=== PATIENT | male | born 1950 | race Caucasian/White ===

== ENCOUNTER 2018-01-28 01:22 | Observation (INO) | payer OTHER ==
[2018-01-28] MEDS ORDERED: NS 1,000 ML IV ONE (01:25)
--- NOTE | 2018-01-28 01:28 | EDPHY ---
H & P Time Seen by Provider: 01/28/18 01:26 HPI/ROS: HPI CHIEF COMPLAINT: Blood red blood per rectum HISTORY OF PRESENT ILLNESS: Patient is a 67-year-old male, presents emergency room bright red blood per rectum. Patient reports to me this started approximately an hour ago. He felt like he had to have diarrhea and then had bright red blood. No history of GI bleed. He is not on any anticoagulation however he did take some aspirin yesterday for headache. Denies any abdominal pain chest pain or shortness of breath. Denies lightheadedness or global weakness. Denies fever. Past Medical History: Diverticulosis. Past Surgical History: Denies any recent surgery Social History: Denies daily use drugs alcohol tobacco. Family History: Noncontributory ROS REVIEW OF SYSTEMS: A comprehensive 10 point review of systems is otherwise negative aside from elements mentioned in the history of present illness. Exam Constitutional appears nontoxic no acute distress, triage nursing summary reviewed, vital signs reviewed, awake/alert. Eyes normal conjunctivae and sclera, EOMI, PERRLA. HENT normal inspection, atraumatic, moist mucus membranes, no epistaxis, neck supple/ no meningismus, no raccoon eyes. Respiratory clear to auscultation bilaterally, normal breath sounds, no respiratory distress, no wheezing. Cardiovascular rate normal, regular rhythm, no murmur, no edema, distal pulses normal. Gastrointestinal soft, non-tender, no rebound, no guarding, normal bowel sounds, no distension, no pulsatile mass. Genitourinary no CVA tenderness. Musculoskeletal no midline vertebral tenderness, full range of motion, no calf swelling, no tenderness of extremities, no meningismus, good pulses, neurovascularly intact. Skin pink, warm, & dry, no rash, skin atraumatic. Neurologic awake, alert and oriented x 3, AAOx3, moves all 4 extremities equally, motor intact, sensory intact, CN II-XII intact, normal cerebellar, normal vision, normal speech. Psychiatric normal mood/affect. Heme/Lymph/Immune no lymphadenopathy. Differential Diagnosis: Includes but is not limited to in a particular order acute GI bleed, blood loss anemia, hemorrhoidal bleed, diverticular bleed, upper GI bleed Medical Decision Making: Plan for this patient IV establishment blood draw, type and screen, 2 large-bore IVs, rectal exam, re-evaluate. Check H&H. Re-evaluation: 0144: Patient had a bowel movement here in the emergency room with significant amount of bright red blood. Per rectum. Minimal stool. No black tarry stool. EKG interpretation by me on record in [employer] system. Impression time of EKG 1:47 a.m., sinus bradycardia rate of 43. No signs of acute ischemia. No ST elevation no ST depression. 0218: Patient remains hemodynamically stable in no acute distress. Blood work has been reviewed H&H are reviewed. Patient has 2 large-bore IVs. He has been typed and screen. Bright red blood per rectum. Protonix as been ordered. I will consult the hospitalist service Dr. Ryan for admission. Additionally will consult GI for further care of this patient. Spoke with Dr. Renae will plan on seeing the patient. Agrees to current treatment plan. Source: Patient, EMS Constitutional: Initial Vital Signs Temperature (C) 36.5 C 01/28/18 01:15 Heart Rate 45 L 01/28/18 01:15 Respiratory Rate 18 01/28/18 01:15 Blood Pressure 147/78 H 01/28/18 01:15 O2 Sat (%) 98 01/28/18 01:15 O2 Delivery Mode Room Air Medical Decision Making - Data Points Laboratory Results: Laboratory Results 01/28/18 01:25 01/28/18 01:25 01/28/18 01/28/18 01/28/18 01:48 01:45 01:34 WBC RBC Hgb POC Hgb 13.3 gm/dL L gm/dL (13.7-17.5) Hct POC Hct 39 % L % (40-51) MCV MCH MCHC RDW Plt Count MPV Neut % (Auto) Lymph % (Auto) [place] % (Auto) Eos % (Auto) Baso % (Auto) Nucleat RBC Rel Count Absolute Neuts (auto) Absolute Lymphs (auto) Absolute Monos (auto) Absolute Eos (auto) Absolute Basos (auto) Absolute Nucleated RBC Immature Gran % Immature Gran # PT INR APTT VBG Lactic Acid 0.9 mmol/L mmol/L (0.7-2.1) POC Sodium 142 mEq/L mEq/L (135-145) Sodium POC Potassium 3.6 mEq/L mEq/L (3.3-5.0) Potassium POC Chloride 104 mEq/L mEq/L (97-110) Chloride Carbon Dioxide Anion Gap POC BUN 23 mg/dL mg/dL (7-23) BUN Creatinine POC Creatinine 1.2 mg/dL mg/dL (0.7-1.3) Estimated GFR Glucose POC Glucose 139 mg/dL H mg/dL (70-100) Calcium Total Bilirubin Conjugated Bilirubin Unconjugated Bilirubin AST ALT Alkaline Phosphatase Total Protein Albumin Lipase Patient ABO/Rh Pending Antibody Screen Pending 01/28/18 01/28/18 01/28/18 01:25 01:25 01:25 WBC 7.74 10^3/uL 10^3/uL (3.80-9.50) RBC 4.18 10^6/uL L 10^6/uL (4.40-6.38) Hgb 12.9 g/dL L g/dL (13.7-17.5) POC Hgb Hct 38.4 % L % (40.0-51.0) POC Hct MCV 91.9 fL fL (81.5-99.8) MCH 30.9 pg pg (27.9-34.1) MCHC 33.6 g/dL g/dL (32.4-36.7) RDW 13.5 % % (11.5-15.2) Plt Count 276 10^3/uL 10^3/uL (150-400) MPV 11.1 fL fL (8.7-11.7) Neut % (Auto) 47.8 % % (39.3-74.2) Lymph % (Auto) 39.8 % % (15.0-45.0) [place] % (Auto) 8.7 % % (4.5-13.0) Eos % (Auto) 2.7 % % (0.6-7.6) Baso % (Auto) 0.9 % % (0.3-1.7) Nucleat RBC Rel Count 0.0 % % (0.0-0.2) Absolute Neuts (auto) 3.70 10^3/uL 10^3/uL (1.70-6.50) Absolute Lymphs (auto) 3.08 10^3/uL H 10^3/uL (1.00-3.00) Absolute Monos (auto) 0.67 10^3/uL 10^3/uL (0.30-0.80) Absolute Eos (auto) 0.21 10^3/uL 10^3/uL (0.03-0.40) Absolute Basos (auto) 0.07 10^3/uL 10^3/uL (0.02-0.10) Absolute Nucleated RBC 0.00 10^3/uL 10^3/uL (0-0.01) Immature Gran % 0.1 % % (0.0-1.1) Immature Gran # 0.01 10^3/uL 10^3/uL (0.00-0.10) PT 13.5 SEC SEC (12.0-15.0) INR 1.01 (0.83-1.16) APTT 22.9 SEC L SEC (23.0-38.0) VBG Lactic Acid POC Sodium Sodium 144 mEq/L mEq/L (135-145) POC Potassium Potassium 4.0 mEq/L mEq/L (3.5-5.2) POC Chloride Chloride 106 mEq/L mEq/L (97-110) Carbon Dioxide 27 mEq/l mEq/l (22-31) Anion Gap 11 mEq/L mEq/L (8-16) POC BUN BUN 23 mg/dL mg/dL (7-23) Creatinine 1.1 mg/dL mg/dL (0.7-1.3) POC Creatinine Estimated GFR > 60 Glucose 126 mg/dL H mg/dL (70-100) POC Glucose Calcium 9.2 mg/dL mg/dL (8.5-10.4) Total Bilirubin 0.4 mg/dL mg/dL (0.1-1.4) Conjugated Bilirubin 0.3 mg/dL mg/dL (0.0-0.5) Unconjugated Bilirubin 0.1 mg/dL mg/dL (0.0-1.1) AST 22 IU/L IU/L (17-59) ALT 23 IU/L IU/L (21-72) Alkaline Phosphatase 62 IU/L IU/L (38-126) Total Protein 6.2 g/dL L g/dL (6.3-8.2) Albumin 4.0 g/dL g/dL (3.5-5.0) Lipase 69 IU/L IU/L (23-300) Patient ABO/Rh Antibody Screen Medications Given: Discontinued Medications Sodium Chloride (Ns) 1,000 mls @ 0 mls/hr IV EDNOW ONE; Wide Open PRN Reason: Protocol Stop: 01/28/18 01:26 Last Admin: 01/28/18 02:18 Dose: 1,000 mls Pantoprazole Sodium (Protonix) 40 mg IVP EDNOW ONE Stop: 01/28/18 01:56 Last Admin: 01/28/18 02:18 Dose: 40 mg Point of Care Test Results: 01/28/18 01:34 POC Sodium 142 POC Potassium 3.6 POC Chloride 104 POC BUN 23 POC Creatinine 1.2 POC Glucose 139 H Departure - Departure Disposition: [facility] Inpatient Acute Clinical Impression: Bradycardia GIB (gastrointestinal bleeding) Qualifiers: GI bleed type/associated pathology: unspecified gastrointestinal hemorrhage type Qualified Code(s): K92.2 - Gastrointestinal hemorrhage, unspecified Condition: Fair
[2018-01-28 01:44] LABS: PLATELET COUNT 276 10^3/uL (150-400)
--- NOTE | 2018-01-28 01:49 | CPEKG ---
Heart Rate: 43 RR Interval: 1395 P-R Interval: 180 QRSD Interval: 102 QT Interval: 492 QTC Interval: 417 P [place]: 55 QRS [place]: 47 T Wave [place]: 51 EKG Severity - OTHERWISE NORMAL ECG - EKG Impression: SINUS BRADYCARDIA Electronically Signed By: Maximiliano Bangura 28-Jan-2018 06:28:24
[2018-01-28 01:52] LABS: INR 1.01 (0.83-1.16); PROTIME(PATIENT) 13.5 SEC (12.0-15.0)
[2018-01-28] MEDS ORDERED: PANTOPRAZOLE SODIUM 40 MG VIAL IVP ONE (01:55)
[2018-01-28] MEDS ORDERED: ONDANSETRON 4 MG/2 ML VIAL IVP PRN ×2 (03:01→14:29)
[2018-01-28] MEDS ORDERED: PEG 3350/NA SULF,BICARB,CL/KCL (GAVILYTE-G) 4000 ML BTL PO ONE (03:03)
[2018-01-28] MEDS ORDERED: NS 1,000 ML IV SCH (03:15)
--- NOTE | 2018-01-28 04:42 | PDGENHP ---
History and Physical - Chief Complaint Rectal bleeding - History of Present Illness Source-patient provides history appears reliable. EMR reviewed and case discussed with ED provider. HPI - pleasant 67-year-old gentleman with past medical history significant for BPH, diverticulosis, GERD who presents emergency department today with complaints of rectal bleeding. Patient's symptoms started approximately 1 hr prior to his arrival to the emergency department. Patient states that he was getting ready for bed and had send urgency to go to the bathroom. He noted dark red stool in the toilet. Patient subsequently had 6 additional episodes with progression of the bleeding to bright red blood. Patient denies any abdominal pain a little bit of distension. Patient denies any nausea or vomiting. Patient does state that during these episodes he did develop a little diaphoresis but denies any chest pain or shortness of air however he does state that he felt like he was breathing more heavily. Additionally patient is not sure if he had a presyncopal or syncopal episode. He denies any falls or head injury but he does state that he had gone up and down the stairs a few times on when he began to developed some diaphoresis and lightheadedness. Patient also notes that he took a dose of aspirin for some aches and pains yesterday. He does not take this on a regular basis on rather he utilizes more of Tylenol. Patient does have a history of diverticulosis on a colonoscopy approximately 6 or 7 years ago. He denies any other abnormalities on his previous colonoscopy, no polyps. History Information - Allergies/Home Medication List Allergies/Adverse Reactions: acetaminophen [From Vicodin] Allergy (Mild, Verified 01/28/18 02:54) Other-Enter Comments hydrocodone [From Vicodin] Allergy (Mild, Verified 01/28/18 02:54) Other-Enter Comments I have personally reviewed and updated: family history, medical history, social history, surgical history - Past Medical History Additional medical history: BPH, GERD, diverticulosis, skin cancer - Surgical History Additional surgical history: Colonoscopy 6 or 7 years ago, skin cancer removal localized. - Family History Additional family history: Brother with history of diverticulitis - Social History Smoking Status: Never smoked Alcohol Use: Other (1.5 glasses of wine daily with dinner) Drug Use: None Additional social history: Patient is lives with his . Cor status- full. Review of Systems Review of Systems: ROS: 10pt was reviewed & negative except for what was stated in HPI & below Constitutional: Reports: diaphoresis (See HPI). Denies: chills, fever, weight loss Cardiac: Reports: lightheadedness, syncope. Denies: chest pain, edema, palpitations Respiratory: Reports: shortness of breath. Denies: orthopnea, wheezing Gastrointestinal: Reports: rectal bleeding, abdominal distention. Denies: vomitting, abdominal pain, nausea Genitourinary: Denies: dysuria, hematuria Muscolosketal: Denies: joint pain, muscle pain Skin: Reports: no symptoms Neurological: Reports: anxiety. Denies: headache, weakness Hematologic/Lymphatic: Denies: anemia (No previous history) Physical Exam Physical Exam: Selected Entries 01/28/18 01:15 Blood Pressure Automatic Method Heart Rate 45 L Respiratory 18 Rate O2 Sat (%) 98 Temperature (C) 36.5 C Blood Pressure 147/78 H Mean Arterial 101 H Pressure (MAP) O2 Delivery Room Air Mode Temperature Oral Source Temp Pulse Resp BP Pulse Ox 36.6 C 58 L 18 136/81 H 95 01/28/18 03:10 01/28/18 03:10 01/28/18 03:10 01/28/18 03:10 01/28/18 03:10 Constitutional: no apparent distress, appears nourished, not in pain, other ( NAD. Pleasant adult gentleman is lying quietly in bed.) Eyes: PERRL, anicteric sclera, EOMI, No pale conjunctiva, No scleral injection Ears, Nose, Mouth, Throat: moist mucous membranes, no oral mucosal ulcers, other (No nasal discharge), No poor dentition Cardiovascular: no murmur, rub, or gallop, pulses symmetric bilaterally, bradycardia (50s to 60s with regular rhythm) Peripheral Pulses: 2+: dorsalis-pedis (R), dorsalis-pedis (L) Respiratory: no respiratory distress, clear to auscultation, No reduced air movement, No expiratory wheeze, No inspiratory crackles Gastrointestinal: soft, non-tender abdomen, no palpable masses, distension (Mild ), other (Hypoactive bowel sounds.), No tenderness Genitourinary: no bladder tenderness, No reilly in urethra Skin: warm, normal color, no rashes or abrasions, No abrasion Musculoskeletal: full muscle strength, no muscle tenderness, normal joint ROM, other (Patient sits up independently) Neurologic: AAOx3, CN II-XII Intact, other (Grossly nonfocal), No facial droop Psychiatric: not encephalopathic, thought process linear, anxious, other ( Thought process content and questions are appropriate.), No encephalopathic Lab Data & Imaging Review 01/28/18 01:25 01/28/18 01:25 WBC 7.74 10^3/uL (3.80-9.50) 01/28/18 01:25 RBC 4.18 10^6/uL (4.40-6.38) L 01/28/18 01:25 Hgb 12.9 g/dL (13.7-17.5) L 01/28/18 01:25 POC Hgb 13.3 gm/dL (13.7-17.5) L 01/28/18 01:34 Hct 38.4 % (40.0-51.0) L 01/28/18 01:25 POC Hct 39 % (40-51) L 01/28/18 01:34 MCV 91.9 fL (81.5-99.8) 01/28/18 01:25 MCH 30.9 pg (27.9-34.1) 01/28/18 01:25 MCHC 33.6 g/dL (32.4-36.7) 01/28/18 01:25 RDW 13.5 % (11.5-15.2) 01/28/18 01:25 Plt Count 276 10^3/uL (150-400) 01/28/18 01:25 MPV 11.1 fL (8.7-11.7) 01/28/18 01:25 Neut % (Auto) 47.8 % (39.3-74.2) 01/28/18 01:25 Lymph % (Auto) 39.8 % (15.0-45.0) 01/28/18 01:25 [place] % (Auto) 8.7 % (4.5-13.0) 01/28/18 01:25 Eos % (Auto) 2.7 % (0.6-7.6) 01/28/18 01:25 Baso % (Auto) 0.9 % (0.3-1.7) 01/28/18 01:25 Nucleat RBC Rel Count 0.0 % (0.0-0.2) 01/28/18 01:25 Absolute Neuts (auto) 3.70 10^3/uL (1.70-6.50) 01/28/18 01:25 Absolute Lymphs (auto) 3.08 10^3/uL (1.00-3.00) H 01/28/18 01:25 Absolute Monos (auto) 0.67 10^3/uL (0.30-0.80) 01/28/18 01:25 Absolute Eos (auto) 0.21 10^3/uL (0.03-0.40) 01/28/18 01:25 Absolute Basos (auto) 0.07 10^3/uL (0.02-0.10) 01/28/18 01:25 Absolute Nucleated RBC 0.00 10^3/uL (0-0.01) 01/28/18 01:25 Immature Gran % 0.1 % (0.0-1.1) 01/28/18 01:25 Immature Gran # 0.01 10^3/uL (0.00-0.10) 01/28/18 01:25 PT 13.5 SEC (12.0-15.0) 01/28/18 01:25 INR 1.01 (0.83-1.16) 01/28/18 01:25 APTT 22.9 SEC (23.0-38.0) L 01/28/18 01:25 VBG Lactic Acid 0.9 mmol/L (0.7-2.1) 01/28/18 01:48 POC Sodium 142 mEq/L (135-145) 01/28/18 01:34 Sodium 144 mEq/L (135-145) 01/28/18 01:25 POC Potassium 3.6 mEq/L (3.3-5.0) 01/28/18 01:34 Potassium 4.0 mEq/L (3.5-5.2) 01/28/18 01:25 POC Chloride 104 mEq/L (97-110) 01/28/18 01:34 Chloride 106 mEq/L (97-110) 01/28/18 01:25 Carbon Dioxide 27 mEq/l (22-31) 01/28/18 01:25 Anion Gap 11 mEq/L (8-16) 01/28/18 01:25 POC BUN 23 mg/dL (7-23) 01/28/18 01:34 BUN 23 mg/dL (7-23) 01/28/18 01:25 Creatinine 1.1 mg/dL (0.7-1.3) 01/28/18 01:25 POC Creatinine 1.2 mg/dL (0.7-1.3) 01/28/18 01:34 Estimated GFR > 60 01/28/18 01:25 Glucose 126 mg/dL (70-100) H 01/28/18 01:25 POC Glucose 139 mg/dL (70-100) H 01/28/18 01:34 Calcium 9.2 mg/dL (8.5-10.4) 01/28/18 01:25 Total Bilirubin 0.4 mg/dL (0.1-1.4) 01/28/18 01:25 Conjugated Bilirubin 0.3 mg/dL (0.0-0.5) 01/28/18 01:25 Unconjugated Bilirubin 0.1 mg/dL (0.0-1.1) 01/28/18 01:25 AST 22 IU/L (17-59) 01/28/18 01:25 ALT 23 IU/L (21-72) 01/28/18 01:25 Alkaline Phosphatase 62 IU/L (38-126) 01/28/18 01:25 Total Protein 6.2 g/dL (6.3-8.2) L 01/28/18 01:25 Albumin 4.0 g/dL (3.5-5.0) 01/28/18 01:25 Lipase 69 IU/L (23-300) 01/28/18 01:25 Patient ABO/Rh O POSITIVE 01/28/18 01:45 Antibody Screen NEGATIVE 01/28/18 01:45 Visualized and Interpreted EKG results: Yes EKG additional interpertation: Sinus bradycardia in the 40s. No acute ST changes. QTC 417. Assessment & Plan Assessment: Pleasant 67-year-old gentleman with history of diverticulosis presents emergency department with multiple episodes of rectal bleeding bright red blood per rectum. GIB (gastrointestinal bleeding) - lower GI bleeding likely related to the diverticulosis versus AV malformation versus less likely irritable bowel disease or hemorrhoids. Patient with a slightly declined H&H who which we will continue to monitor and trend. Patient has already been typed and screen. GI was consulted from the emergency department and recommends the patient complete a bowel prep in anticipation for colonoscopy later this morning. I did review with the patient importance of completing the full course of GoLYTELY if possible on to ensure adequate prep for colonoscopy. Patient has concerns regarding persistent watery stools the last time he had a colonoscopy and a multiple number of BMs and trips to the bathroom he would need to make. Patient is willing to proceed with the bowel prep and will monitor for clear stools. Acute blood loss anemia - baseline is unknown but given the quantity of blood patient reports this is likely an acute blood loss anemia. Trending H&H. Transfuse if needed. Patient is already typed and screened. Bradycardia (Acute) - patient reports a baseline heart rate of 60s. When he arrived to the emergency department he did have a heart rate in the 40s. Patient endorses at episode of presyncope possible syncope and may have had a vagal response. Patient's heart rate has returned to baseline at this time. Patient will receive IV fluids for supplementation. Will monitor his H&H serially. Patient is not on any beta blockers. Hyperglycemia - these are nonfasting labs. No previous history of diabetes or hyperglycemia. Will continue to monitor no need for insulin at this time. FEN - patient will be NPO except for medications including bowel prep. Electrolytes will be monitored and replaced if needed. PPX-SCDs only. Holding anticoagulation in setting of acute bleeding. Cor status-full Disposition patient has been admitted to observation status on the medical floor at this time pending on findings and recommendations as per GI.
[2018-01-28] MEDS ORDERED: LR 1,000 ML IV ONE (13:18)
--- NOTE | 2018-01-28 14:09 | HOSPPROG ---
Hospitalist Progress Note Assessment/Plan: Meghan 67-year-old gentleman with history of diverticulosis presents emergency department with multiple episodes of rectal bleeding bright red blood per rectum. #GIB (gastrointestinal bleeding) - -lower GI bleeding likely related to the diverticulosis versus AV malformation versus less likely irritable bowel disease or hemorrhoids. -Patient with a slightly declined H&H who which we will continue to monitor and trend. -GI was consulted from the emergency department -bowel prep and colonoscopy today -Patient is willing to proceed with the bowel prep and will monitor for clear stools. #Acute blood loss anemia - -baseline is unknown but given the quantity of blood patient reports this is likely an acute blood loss anemia. -Trending H&H. Transfuse if needed. Patient is already typed and screened. #Bradycardia (Acute) - -patient reports a baseline heart rate of 60s. -stable #Hyperglycemia - -these are nonfasting labs. No previous history of diabetes or hyperglycemia. Will continue to monitor no need for insulin at this time. #FEN - -patient will be NPO except for medications including bowel prep. -Electrolytes will be monitored and replaced if needed. #PPX-SCDs only. Holding anticoagulation in setting of acute bleeding. #Cor status-full Disposition patient has been admitted to observation status on the medical floor at this time pending on findings and recommendations as per GI. Subjective: Anxious about colonoscopy. Objective: Vital Signs Temp Pulse Resp BP Pulse Ox 36.9 C 66 16 160/84 H 95 01/28/18 13:09 01/28/18 13:09 01/28/18 13:09 01/28/18 13:09 01/28/18 13:09 Laboratory Results 01/28/18 08:00 01/27/18 01/28/18 01/29/18 05:59 05:59 05:59 Intake Total 1200 Output Total 1280 750 Balance -80 -750 PT 13.5 SEC (12.0-15.0) 01/28/18 01:25 INR 1.01 (0.83-1.16) 01/28/18 01:25 - Physical Exam Constitutional: no apparent distress, appears nourished Eyes: PERRL, anicteric sclera Ears, Nose, Mouth, Throat: moist mucous membranes, hearing normal Cardiovascular: No JVD, No edema Respiratory: no respiratory distress, no rales or rhonchi Gastrointestinal: No tenderness, No ascites Skin: warm, normal color Musculoskeletal: normal joint ROM, no joint effusions Neurologic: AAOx3 Psychiatric: interacting appropriately, thought process linear, anxious ICD10 Worksheet Patient Problems: Problems Problem Status Onset GIB (gastrointestinal bleeding) Acute Bradycardia Acute
[2018-01-28] MEDS ORDERED: PROPOFOL 200 MG/20 ML VIAL ONE ×2 (14:27→14:42)
--- NOTE | 2018-01-28 14:28 | GCON ---
[f rep st] CONSULTATION REQUESTING PHYSICIAN: Dr. Bangura REASON FOR CONSULTATION: Bloody stool. CHIEF COMPLAINT: Bloody stool. HISTORY OF PRESENTING ILLNESS: Briefly, the patient is a pleasant 67-year-old male with a past medic al history significant for heartburn and diverticulosis, who presented to the emergency room with a c omplaint of rectal bleeding. He reports he was in his usual state of health until recently. He had some mild change in bowel habits including some increased frequency. On the day of admission, he rep orts he had several urgent, loose, and frankly bloody bowel movements. Given the volume of blood, th e urgency of bowel movements, he presented to the emergency room with alarm. He reports no nausea or vomiting. He has had no shortness of breath or cough. He reports no fevers, chills or sweats. He reports no prior history of prior similar symptoms. He denies syncope, although may have felt faint. He reports no fall. He reports no nonsteroidal anti-inflammatory use, although recently had a head ache and used some aspirin. He underwent colonoscopy approximately 6-7 years ago, while in the [facility] system. He reports apart from diverticulosis, this was normal. ALLERGIES: Are to Tylenol and Vicodin. PAST MEDICAL HISTORY: Includes BPH, heartburn, diverticulosis, and skin cancer. FAMILY HISTORY: Positive for brother with diverticulosis and diverticulitis. SOCIAL HISTORY: He drinks alcohol rarely. Does not use drugs or smoke cigarettes. He lives with hi s . OUTPATIENT MEDICATIONS: Reviewed and include only the occasional anti-inflammatory therapy. REVIEW OF SYSTEMS: A complete 14-point review was undertaken with the patient and is negative except for those details described in the History of Present Illness. PHYSICAL EXAM: GENERAL: This is a well-developed male, in no apparent distress. HEENT: His pupils are equal, round, reactive to light and accommodation. Sclerae are nonicteric. His oropharynx is c lear. NECK: Supple without lymphadenopathy. HEART: Regular without murmur. ABDOMEN: Soft, nonte nder, with normoactive bowel sounds. EXTREMITIES: Free of cyanosis, clubbing, and edema. NEURO: G rossly nonfocal. SKIN: Warm and dry. MUSCULOSKELETAL: His joints show no arthritis. NEURO: Stab le mood and affect. LABORATORY TESTING: Shows a white count of 7.7, hemoglobin of 12.9, hematocrit of 38.4, platelet cou nt of 276. INR 1.01. Sodium of 142, potassium of 3.6, chloride of 104, bicarb of 27, BUN of 23, cre atinine of 1.0. AST, ALT, alkaline phosphatase normal. Lipase normal. IMPRESSION AND RECOMMENDATIONS: The patient is admitted to the hospital with multiple bright red blo jeffrey bowel movements. Luckily, his hematocrit and vitals remain stable. In order to resolve the diff erential diagnosis at this time, I recommend lower endoscopy. Pending the results of lower endoscopy , we could consider additional workup. Given his overall stable hematocrit and vital signs, it is po ssible that he could be discharged soon. /[id number]/MODL
[2018-01-28] MEDS ORDERED: NALOXONE HCL 0.4 MG/ML INJ IVP PRN (14:29)
[2018-01-28] MEDS ORDERED: ALBUTEROL 3 ML DEYVIAL IH PRN (14:29)
[2018-01-28] MEDS ORDERED: LR 500 ML IV PRN (14:29)
[2018-01-28] MEDS ORDERED: fentaNYL 100 MCG/2 ML INJ IVP PRN (14:29)
--- NOTE | 2018-01-28 14:29 | PDANEPAE ---
ANE Past Medical History - Pulmonary History Hx Oxygen in Use at Home: No Hx Sleep Apnea: No Sleep Apnea Screening Result - Last Documented: Positive - Endocrine History Hx Diabetes: No - Chronic Pain History Chronic Pain: No ANE Review of Systems Review of Systems: ANE Patient History - Allergies Allergies/Adverse Reactions: acetaminophen [From Vicodin] Allergy (Mild, Verified 01/28/18 02:54) Other-Enter Comments hydrocodone [From Vicodin] Allergy (Mild, Verified 01/28/18 02:54) Other-Enter Comments - Home Medications Home Medications: Finasteride [Proscar 5 MG (*)] 5 mg PO DAILY 01/28/18 [Last Taken Unknown] Ranitidine HCl [Zantac 75] 75 mg PO DAILY PRN 01/28/18 [Last Taken Unknown] Testosterone [Androgel 1% pump] 2 applic TP DAILY 01/28/18 [Last Taken Unknown] - NPO status NPO Since - Liquids (Date): 01/28/18 NPO Since - Liquids (Time): 00:00 NPO Since - Solids (Date): 01/28/18 NPO Since - Solids (Time): 00:00 - Smoking Hx Smoking Status: Never smoked - Alcohol Use Alcohol Use: Other (1.5 glasses of wine daily with dinner) ANE Labs/Vital Signs - Labs Result Diagrams: 01/28/18 08:00 01/28/18 01:25 - Vital Signs Blood Pressure: 160/84 Heart Rate: 66 Respiratory Rate: 16 O2 Sat (%): 95 Height: 177.8 cm Weight: 77.156 kg ANE Physical Exam - Airway Neck exam: FROM Mallampati Score: Class 1 Mouth exam: normal dental/mouth exam - Pulmonary Pulmonary: no respiratory distress, no rales or rhonchi, clear to auscultation - Cardiovascular Cardiovascular: regular rate and rhythym, no murmur, rub, or gallop - ASA Status ASA Status: III ANE Anesthesia Plan Anesthesia Plan: GA with mask
[2018-01-28] MEDS ORDERED: LIDOCAINE 2% 5 ML SDV ONE (14:30)
--- NOTE | 2018-01-28 15:00 | POSTANESTH ---
Post Anesthetic Evaluation Cardiovascular Status: Normal, Stable Respiratory Status: Normal, Stable Level of Consciousness/Mental Status: Mildly Sleepy, Arousable Pain Control: Adequate, Prn Tx Ordered Nausea/Vomiting Control: Adequate, Prn Tx Ordered Complications Possibly Related to Anesthesia: None Noted
--- NOTE | 2018-01-28 15:15 | SUROPNOTE ---
[facility] Operative Report - Surgery BRIEF COLON NOTE INDICATION: brbrpr MEDICATION: per anesthesia COMPLICATION: none acutely FINDINGS: 1. multiple diverticula 2. no active bleeding 3. little to no residual blood 4. one diverticulum has ulcerated margin and a non-bleeding visible vessel - while not bleeding, 2 clips applied to reduce rebleeding risk IMPRESSION/RECS: 1. Bleeding - suspect resolved diverticular event - ok to advance diet and dc home if tolerating po - if has rebleeding, would consider additional work-up with repeat colon, tagged cell scan, etc - will sign off, call with questions.
--- NOTE | 2018-01-28 15:15 | ASMTCMCOM ---
CM Note CM Note Notes: Pt in with GI bleed, had colonoscopy today. Anticipate pt will d/c home with , no CM d/c needs identified CM available for changes/needs. Date Signed: 01/28/2018 03:14 PM Electronically Signed By:BRENNAN Conroy
--- NOTE | 2018-01-28 15:26 | SUROPNOTE ---
[facility] Operative Report - Surgery BRIEF EGD NOTE MEDICATION: per anesthesia INDICATION: nausea, vomiting, poor po intake COMPLICATIONS: none acutely FINDINGS: 1. normal esophagus 2. mild gastritis - bx'd 3. normal duodenum - bx'd IMPRESSION/RECS 1. POOR PO INTAKE - uncertain etiology - recommend PPI PO QD - h.pylori testing - await EGD bx - ok to advance diet - continue supportive care - given overall short duration of symptoms, hopeful they may be self limited - will sign off, call with any questions.
[2018-01-28 15:58] VITALS: BP 156/94
--- NOTE | 2018-01-28 16:25 | GDS ---
[f rep st] DISCHARGE SUMMARY DISCHARGE DIAGNOSIS: Potential diverticular bleed. CONSULTATIONS: Gastroenterology. STUDIES AND PROCEDURES DONE: Colonoscopy. HOSPITAL COURSE: The patient is a 67-year-old male who presents to the emergency department with complaints of rectal bleeding. He was evaluated during this hospitalization and received a consultation from Dr. Renae of Gastroenterology. A colonoscopy was performed, noting a potential resolved diverticular bleed. The patient has no further signs of bleeding. He is tolerating a regular diet. He will be discharged home. FOLLOWUP: Followup will be in the outpatient setting with his primary care physician. DISCHARGE MEDICATIONS: Please refer to EMR form. I have not adjusted the patient's previously prescribed home medications to the best of my knowledge. Discussed discharge plan with Dr. Renae of Gastroenterology who is in agreement. /[id number]/MODL MTDD
[2018-01-29] MEDS ORDERED: TESTOSTERONE TP SCH (09:00)
[2018-01-29] MEDS ORDERED: FINASTERIDE 5 MG TAB PO SCH (09:00)
--- NOTE | 2018-02-01 09:22 | GIREPORT ---
Formerly [facility], 1928–1983 Surgical Services - Endoscopy Department Patient Name: Del Lion Procedure Date: 01/28/2018 2:20 PM Patient Type: Inpatient Attending MD/ ER Physician: Milton Renae MD Procedure: Colonoscopy Indications: Hematochezia Providers: Milton Renae MD Medicines: Sedation Administered by an Anesthesia Professional Complications: No immediate complications. Description of Procedure: After obtaining informed consent, the scope was passed under direct vis ion. Throughout the procedure, the patient's blood pressure, pulse, and oxyg en saturations were monitored continuously. The Colonoscope with irrigatio n channel was introduced through the anus and advanced to the cecum, identified by appendiceal orifice and ileocecal valve. The entire colon was examined. Findings: Multiple small and large-mouthed diverticula were found in the entire c olon. One diverticulum was noted to have ulcerated margin with a non-bleeding vessel. No active bleeding, but two hemostatic clips were successfully placed to reduce likelihood of rebleeding. There was no bleeding at the end of the procedure. Estimated Blood Loss: Estimated blood loss: none. Post Op Diagnosis: - Diverticulosis in the entire examined colon. One tic was noted to hav e ulceration and a visible vessel at its margin. No active bleeding noted , but 2 clips were placed in hopes of prevention of future bleeding. - No specimens collected. Recommendation: - Return patient to [facility] for ongoing care. - Advance diet as tolerated. Attending Participation: I personally performed the entire procedure. Milton Renae MD Milton Renae MD 01/28/2018 3:12:41 PM This report has been signed electronicallyMilton Renae MD Number of Addenda: 0 Note Initiated On: 01/28/2018 2:20 PM Total Procedure Duration Time 0 hours 15 minutes 51 seconds [email or web address]
== END 2018-01-28 16:52 | disposition home or self-care (01) ==
LOC: EDUNIT# → F3N 03:08
PROVIDERS: ADMIT Family Medicine; ATTEND Hospitalist
PROC: 0W3P8ZZ Control Bleeding in Gastrointestinal Tract, Via Natural or Artificial Opening Endoscopic (ICD-10-PCS; principal; 2018-01-28 14:15)
DX: K92.2 Gastrointestinal hemorrhage, unspecified (principal); K57.30 Diverticulosis of large intestine without perforation or abscess without bleeding; D62 Acute posthemorrhagic anemia; R00.1 Bradycardia, unspecified; R73.9 Hyperglycemia, unspecified; E86.9 Volume depletion, unspecified; N40.0 Benign prostatic hyperplasia without lower urinary tract symptoms; K21.9 Gastro-esophageal reflux disease without esophagitis
CPT/HCPCS: 45382; 93005; G0378; 82947-QW; J2704

== ENCOUNTER → 2018-03-07 | Outpatient (CLI) | payer OTHER | LOC: FIMAGING 10:25 | PROVIDERS: ATTEND Internal Medicine | DX: J98.4 Other disorders of lung (principal); E78.00 Pure hypercholesterolemia, unspecified; R00.1 Bradycardia, unspecified; Z82.49 Family history of ischemic heart disease and other diseases of the circulatory system ==

== ENCOUNTER → 2018-10-14 | Outpatient (CLI) | payer OTHER | LOC: FIMAGING 09:15 | PROVIDERS: ATTEND Internal Medicine | DX: R10.11 Right upper quadrant pain (principal) ==

== ENCOUNTER 2018-12-08 09:35 | Emergency (ER) | payer OTHER ==
[2018-12-08] MEDS ORDERED: NS 1,000 ML IV ONE (10:24)
--- NOTE | 2018-12-08 10:27 | EDPHY ---
H & P Time Seen by Provider: 12/08/18 09:57 HPI/ROS: CHIEF COMPLAINT: Abdominal pain HISTORY OF PRESENT ILLNESS: 68-year-old male presents to the emergency department with lower abdominal pain. The patient states yesterday he noted some lower abdominal pain which feels a bit worse on the left compared to the right. He was up most of the night because of the pain. It is constant. No radiation of pain. No back pain. No nausea or vomiting. Temperature got up to as high as 99.0. No reported trauma. No urinary symptoms. He has known diverticula seen on previous colonoscopies however he has never had diverticulitis. No chest pain or difficulty breathing. REVIEW OF SYSTEMS: Constitutional: No fever, no chills. Eyes: No double or blurry vision. ENT: No sore throat. Respiratory: No cough, no shortness of breath. Cardiac: No chest pain. Gastrointestinal: Abdominal pain as above. No vomiting or diarrhea. Genitourinary: No dysuria. Musculoskeletal: No neck or back pain. Skin: No rashes. Neurological: No headache. Past Medical/Surgical History: Diverticular bleed 1 year ago Social History: Smoking Status: Never smoked Physical Exam: General Appearance: Alert, no distress. Afebrile. No apparent distress. Eyes: Pupils equal and round. Extraocular motions are all intact. ENT: Mouth: Mucous membranes moist. Respiratory: No wheezing, rhonchi, or rales, lungs are clear to auscultation. Cardiovascular: Regular rate and rhythm. Gastrointestinal: Abdomen is soft. Tenderness with palpation in the suprapubic area as well as in the left lower quadrant. There is no rebound, guarding or masses noted. Nontender to palpate in the right lower quadrant. There is no rebound, guarding or masses noted. No CVA tenderness bilaterally. Neurological: Alert and oriented x 3, cranial nerves II through XII grossly intact Skin: Warm and dry, no rashes. Musculoskeletal: Nontender to palpate along the cervical, thoracic or lumbar spine. Neck is supple. Extremities: Full range of motion and no peripheral edema. Psychiatric: Patient is oriented X 3, there is no agitation. Constitutional: Initial Vital Signs Temperature (C) 36.8 C 12/08/18 09:38 Heart Rate 93 12/08/18 09:38 Respiratory Rate 16 12/08/18 09:38 Blood Pressure 110/66 12/08/18 09:38 O2 Sat (%) 97 12/08/18 09:38 O2 Delivery Mode Room Air O2 (L/minute) 1.0 Allergies/Adverse Reactions: hydrocodone [From Vicodin] Allergy (Mild, Verified 01/28/18 02:54) Other-Enter Comments Home Medications: Medication Instructions Recorded Finasteride [Proscar 5 MG (*)] 5 mg PO DAILY 01/28/18 Ranitidine HCl [Zantac 75] 75 mg PO DAILY PRN 01/28/18 Testosterone [Androgel 1% pump] 2 applic TP DAILY 01/28/18 Ciprofloxacin [Cipro 500 mg] 500 mg PO BID #14 tab 12/08/18 metroNIDAZOLE [Flagyl 500 mg (*)] 500 mg PO TID #21 tab 12/08/18 Medical Decision Making - Diagnostics Imaging Results: Imaging Impressions Abdomen CT 12/08/18 11:14 Impression: 1. Diverticulitis proximal sigmoid colon near the junction with the descending colon left mid to upper pelvis without peridiverticular abscess or free air. 2. Focal ileus associated with distal small bowel left lower quadrant adjacent to the diverticulitis. 3. Enlarged prostate. Findings discussed with Radha Funk PA-C at 12:42 hour, 12/08/2018. CT abd/pelvis diverticulitis of the junction right where the sigmoid colon meets with the descending colon. No evidence of perforation or abscess. Reported to me by Dr. Manolo Thomas at 12:40pm Imaging: Discussed imaging studies w/ boat engines installer Radiologist ED Course/Re-evaluation: 68-year-old male presents to the emergency department with abdominal pain. I was concerned about possible diverticulitis. The patient has never had diverticulitis in the past. Laboratory studies reveal white blood cell count of just over 10,000. His creatinine was normal. CT imaging of the abdomen and pelvis reveal evidence of diverticulitis at the sigmoid colon right where it meets the descending colon. No evidence of perforation or abscess. The patient also was noted to have a very enlarged prostate. The patient states he has a history of benign prostatic hypertrophy and is on medications for this and has seen a urologist in the past as well. The patient was feeling nauseous and did not think that he could take oral medication. He was given IV Flagyl and IV ciprofloxacin in the emergency department and sent home with a prescription for Flagyl 500 mg three times daily for 7 days and ciprofloxacin 500 mg twice daily for 7 days. He was given strict return to the emergency department precautions including fever, vomiting , increasing or worsening abdominal pain or if he felt worse in any way. Patient felt comfortable with this plan. He was tolerating p.o. Fluids and eating some soup upon discharge. Differential Diagnosis: Including but not limited to diverticulitis, perforation, abscess, acute appendicitis, - Data Points Laboratory Results: Laboratory Results 12/08/18 10:35 12/08/18 10:35 12/08/18 12/08/18 12/08/18 10:47 10:35 10:35 WBC 10.36 10^3/uL H 10^3/uL (3.80-9.50) RBC 4.89 10^6/uL 10^6/uL (4.40-6.38) Hgb 15.2 g/dL g/dL (13.7-17.5) POC Hgb 14.6 gm/dL gm/dL (13.7-17.5) Hct 45.4 % % (40.0-51.0) POC Hct 43 % % (40-51) MCV 92.8 fL fL (81.5-99.8) MCH 31.1 pg pg (27.9-34.1) MCHC 33.5 g/dL g/dL (32.4-36.7) RDW 13.5 % % (11.5-15.2) Plt Count 272 10^3/uL 10^3/uL (150-400) MPV 10.7 fL fL (8.7-11.7) Neut % (Auto) 84.2 % H % (39.3-74.2) Lymph % (Auto) 8.6 % L % (15.0-45.0) Iron % (Auto) 6.5 % % (4.5-13.0) Eos % (Auto) 0.1 % L % (0.6-7.6) Baso % (Auto) 0.2 % L % (0.3-1.7) Nucleat RBC Rel Count 0.0 % % (0.0-0.2) Absolute Neuts (auto) 8.73 10^3/uL H 10^3/uL (1.70-6.50) Absolute Lymphs (auto) 0.89 10^3/uL L 10^3/uL (1.00-3.00) Absolute Monos (auto) 0.67 10^3/uL 10^3/uL (0.30-0.80) Absolute Eos (auto) 0.01 10^3/uL L 10^3/uL (0.03-0.40) Absolute Basos (auto) 0.02 10^3/uL 10^3/uL (0.02-0.10) Absolute Nucleated RBC 0.00 10^3/uL 10^3/uL (0-0.01) Immature Gran % 0.4 % % (0.0-1.1) Immature Gran # 0.04 10^3/uL 10^3/uL (0.00-0.10) POC Sodium 141 mEq/L mEq/L (135-145) Sodium 138 mEq/L mEq/L (135-145) POC Potassium 4.0 mEq/L mEq/L (3.3-5.0) Potassium 4.4 mEq/L mEq/L (3.5-5.2) POC Chloride 102 mEq/L mEq/L (97-110) Chloride 103 mEq/L mEq/L (97-110) Carbon Dioxide 26 mEq/l mEq/l (22-31) POC Total CO2 25 mEq/L mEq/L (22-31) Anion Gap 9 mEq/L mEq/L (6-14) POC BUN 14 mg/dL mg/dL (7-23) BUN 16 mg/dL mg/dL (7-23) Creatinine 0.9 mg/dL mg/dL (0.7-1.3) POC Creatinine 0.9 mg/dL mg/dL (0.7-1.3) Estimated GFR > 60 Glucose 109 mg/dL H mg/dL (70-100) POC Glucose 114 mg/dL H mg/dL (70-100) Calcium 9.3 mg/dL mg/dL (8.5-10.4) Medications Given: Discontinued Medications Fentanyl (Sublimaze) 50 mcg IVP EDNOW ONE Stop: 12/08/18 11:26 Last Admin: 12/08/18 11:28 Dose: 50 mcg Sodium Chloride (Ns) 1,000 mls @ 0 mls/hr IV ONCE ONE PRN Reason: Wide Open Stop: 12/08/18 10:25 Last Admin: 12/08/18 10:47 Dose: 1,000 mls Ciprofloxacin/Dextrose (Cipro 400 Mg (Premix)) 200 mls @ 200 mls/hr IV EDNOW ONE PRN Reason: Protocol Stop: 12/08/18 13:45 Last Admin: 12/08/18 12:56 Dose: 200 mls Metronidazole/Sodium Chloride (Flagyl 500 Mg (Premix)) 100 mls @ 100 mls/hr IV ONCE ONE PRN Reason: Protocol Stop: 12/08/18 13:46 Last Admin: 12/08/18 13:58 Dose: 100 mls Point of Care Test Results: Chemistry 12/08/18 10:47 POC Sodium 141 mEq/L mEq/L (135-145) POC Potassium 4.0 mEq/L mEq/L (3.3-5.0) POC Chloride 102 mEq/L mEq/L (97-110) POC Total CO2 25 mEq/L mEq/L (22-31) POC BUN 14 mg/dL mg/dL (7-23) POC Creatinine 0.9 mg/dL mg/dL (0.7-1.3) POC Glucose 114 mg/dL H mg/dL (70-100) ISTAT H&H 12/08/18 10:47 POC Hgb 14.6 gm/dL gm/dL (13.7-17.5) POC Hct 43 % % (40-51) Departure - Departure Disposition: Home, Routine, Self-Care Clinical Impression: Diverticulitis Condition: Good Instructions: Diverticulitis (ED), Diverticulitis Diet (ED) Additional Instructions: Flagyl 500mg three times daily x 1 week. Ciprofloxacin 500 mg twice daily for 1 week. Follow up with her primary care provider by Wednesday to recheck. Return to the emergency department if you develop fever, vomiting, worsening pain, or if you feel worse in any way. CT imaging also reveals a very large prostate. Please follow up with her primary care provider to discuss this. Referrals: Maximiliano Naidu MD [Primary Care Provider] - 2-3 days without fail Prescriptions: Ciprofloxacin [Cipro 500 mg] 500 mg PO BID #14 tab metroNIDAZOLE [Flagyl 500 mg (*)] 500 mg PO TID #21 tab
[2018-12-08] MEDS ORDERED: fentaNYL 100 MCG/2 ML INJ IVP ONE (11:25)
[2018-12-08] MEDS ORDERED: IOPAMIDOL (ISOVUE-300) 100 ML BTL ONE (11:26)
[2018-12-08 12:13] LABS: PLATELET COUNT 272 10^3/uL (150-400)
[2018-12-08] MEDS ORDERED: CIPROFLOXACIN 400 MG/DEXTROSE 200 ML IV ONE (12:46)
[2018-12-08 15:04] VITALS: BP 129/86
== END 2018-12-08 15:05 | disposition home or self-care (01) ==
DX: K57.92 Diverticulitis of intestine, part unspecified, without perforation or abscess without bleeding (principal)
CPT/HCPCS: 82435-PO; 82565-PO; 82947-PO; 84132-PO; 84295-PO; 84520-PO; 85014-ER; 96365; J0744; J3010; Q9967

== ENCOUNTER → 2019-01-18 | Outpatient (CLI) | payer OTHER ==
[~2019-01-18] MED LIST: GADOBUTROL 10 ML VIAL IVP ONE
== END ==
LOC: FIMAGING 11:48
PROVIDERS: ATTEND Internal Medicine
DX: K76.89 Other specified diseases of liver (principal)
CPT/HCPCS: A9585

== ENCOUNTER → 2019-03-07 | Outpatient (CLI) | payer OTHER | LOC: FIMAGING 15:51 ==